=== PATIENT | female | born 2000 | race Caucasian/White ===

== ENCOUNTER 2020-07-21 10:30 | Emergency (ER) | payer BC ==
[~2020-07-21] VITALS: Ht 170.2 cm; Wt 81.6 kg
[2020-07-21] MEDS ORDERED: ONDANSETRON HCL INJ 2MG/ML 2ML 2 MG/ML VIAL IV STA (10:45)
[2020-07-21] MEDS ORDERED: SODIUM CHLORIDE 0.9% 1000ML 1,000 ML IV SCH (10:45)
[2020-07-21] MEDS ORDERED: PANTOPRAZOLE 40 MG 10ML VIAL IV STA (10:45)
[2020-07-21] MEDS ORDERED: LIDOCAINE VISC 2% SOLN 15 ML UDC ONE (11:11)
[2020-07-21] MEDS ORDERED: MAGNESIUM/ALUMINUM/SIMETHICONE 30 ML UDC ONE (11:11)
[2020-07-21] MEDS ORDERED: BELLADONNA ALK/PHENOBARBITAL 5 ML UDC ONE (11:11)
[2020-07-21 11:50] LABS: BASOPHILS % 0.4 % (0.0-1.0); EOSINOPHILS % 0.3 % (0.0-6.0); HEMATOCRIT 44.1 % (34.2-44.1); HEMOGLOBIN 15.4 g/dL (12.0-16.0); LYMPHOCYTES # (AUTO) 2.6 (1.0-3.2); LYMPHOCYTES % 27.1 % (18.0-39.1); MEAN CORPUSCULAR HEMOGLOBIN 30.2 pg (28-32); MEAN CORPUSCULAR HGB CONC 34.9 g/dL (31-35); MEAN CORPUSCULAR VOLUME 86.5 fL (81-99); MONOCYTES # (AUTO) 0.6 (0.2-0.8); MONOCYTES % 6.4 % (4.4-11.3); NEUTROPHILS # (AUTO) 6.4 (2.1-6.9); NEUTROPHILS % 65.5 % (38.7-80.0); PLATELET COUNT 269 x10e3/uL (140-360)
[2020-07-21 12:14] LABS: ALANINE AMINOTRANSFERASE 9 IU/L (0-55); ALBUMIN 4.7 g/dL (3.5-5.0); ALBUMIN/GLOBULIN RATIO 1.4 (0.8-2.0); ALKALINE PHOSPHATASE 74 IU/L (40-150); ANION GAP 20.1 mmol/L (8-16); BLOOD UREA NITROGEN 6 mg/dL (7-26); BUN/CREATININE RATIO 8 (6-25); CALCIUM 9.7 mg/dL (8.4-10.2); CARBON DIOXIDE 18 mmol/L (22-29); CHLORIDE 106 mmol/L (98-107); CREATININE, SERUM 0.77 mg/dL (0.57-1.11); EST GLOMERULAR FILTRATION RATE > 60 ML/MIN (60-); GLUCOSE 89 mg/dL (74-118); POTASSIUM 4.1 mmol/L (3.5-5.1); SODIUM 140 mmol/L (136-145)
[2020-07-21 12:25] LABS: LIPASE 18 U/L (8-78)
[2020-07-21 14:42] LABS: CLARITY,URINE SL CLOUDY (CLEAR); COLOR,URINE YELLOW (YELLOW); LEUKOCYTE ESTERASE ,URINE NEGATIVE (NEGATIVE); NITRITE,URINE NEGATIVE (NEGATIVE); PROTEIN,URINE DIPSTICK NEGATIVE (NEGATIVE); URINE UROBILINOGEN 0.2 mg/dL (0.2 - 1)
[2020-07-21 14:53] LABS: BACTERIA,URINE MODERATE /HPF; EPITHELIAL CELLS,URINE MODERATE /LPF
[2020-07-21 14:58] LABS: KETONES,URINE 2+ (NEGATIVE)
[2020-07-21] MEDS ORDERED: DONNATAL/LIDOCAINE/MAALOX 30 ML SUSP PO SCH (15:00)
[2020-07-21 15:03] VITALS: BP 136/62
== END 2020-07-21 15:04 | disposition home or self-care (01) ==
LOC: ER 10:59
DX: R10.13 Epigastric pain (principal); R11.2 Nausea with vomiting, unspecified; K29.70 Gastritis, unspecified, without bleeding
CPT/HCPCS: 36415; 76705; 80053; 81001; 83690; 84702; 85025; 99283; C9113; J2405; J7030